=== PATIENT | female | born 1965 | race Caucasian/White ===

== ENCOUNTER 2020-04-16 08:41 | Emergency (ER) | payer SELFPAY ==
[~2020-04-16] VITALS: Ht 157.5 cm; Wt 59.0 kg
[2020-04-16] MEDS ORDERED: IBUPROFEN600 MG PO (11:27)
[2020-04-16 11:53] VITALS: BP 128/62
== END 2020-04-16 11:55 | disposition home or self-care (01) | DRG 552 ==
LOC: ED 08:41
DX: S16.1XXA Strain of muscle, fascia and tendon at neck level, initial encounter (principal); S39.012A Strain of muscle, fascia and tendon of lower back, initial encounter; J45.909 Unspecified asthma, uncomplicated; F17.210 Nicotine dependence, cigarettes, uncomplicated; W10.9XXA Fall (on) (from) unspecified stairs and steps, initial encounter; Y92.009 Unspecified place in unspecified non-institutional (private) residence as the place of occurrence of the external cause